=== PATIENT | male | born 1995 | race Caucasian/White ===

== ENCOUNTER 2019-02-23 01:10 | Emergency (ER) | payer OTHER ==
[2019-02-23] MEDS ORDERED: Lidocaine 2% EPI 1:200000 MPF* 10 ML VIAL INJ ONE (02:04)
[2019-02-23] MEDS ORDERED: Lidocaine 2% w/ EPI 1:200,000* 20 ML SDV VIAL ONE (02:06)
--- NOTE | 2019-02-23 02:11 | ED ---
Laceration/Wound HPI - HPI Summary HPI Summary: Patient is a 23 y/o M presenting to [facility] with multiple lacerations to fingers of the left hand. He states that around 0000 02/23/19, he tripped and smashed his left hand through a window pane. He denies foreign body sensation. Patient had washed out the lacerations at home. He denies PMHx of HTN and diabetes, PSHx , and FMHx of HTN and diabetes. On triage, pain is rated 3/10, nothing is noted to aggravate/alleviate Sx. Home medications and allergies are reviewed. - History of Current Complaint Stated Complaint: HAND LAC PER PT Time Seen by Provider: 02/23/19 02:00 Hx Obtained From: Patient Mechanism of Injury: Sharp/Blunt Trauma Onset/Duration: Still Present Aggravating: Nothing Alleviating: Nothing Current Severity: Mild Pain Intensity: 3 Pain Scale Used: 0-10 Numeric Associated Signs & Symptoms: Negative - Allergy/Home Medications Allergies/Adverse Reactions: Allergies Allergy/AdvReac Type Severity Reaction Status Date / Time No Known Allergies Allergy Verified 02/23/19 01:14 PMH/Surg Hx/FS Hx/Imm Hx Endocrine/Hematology History: Denies: Hx Diabetes Cardiovascular History: Denies: Hx Hypertension - Surgical History Surgery Procedure, Year, and Place: none Infectious Disease History: No Infectious Disease History: Denies: Traveled Outside the [place] in Last 30 Days - Family History Known Family History: Negative: Hypertension, Diabetes - Social History Alcohol Use: Weekly Substance Use Type: Reports: None Smoking Status (MU): Never Smoked Tobacco Review of Systems Negative: Fever - on vitals, temp is 98.4 F Skin: Other - positive - left hand lacerations All Other Systems Reviewed And Are Negative: Yes Physical Exam - Summary Physical Exam Summary: Appearance: Well-appearing, Well-nourished, lying in bed comfortably Skin: Patient had superficial lacerations to the left thumb and left, fifth finger. He additionally had a deeper laceration to his left, fourth finger. Lacerations are at the dorsal aspect of the hand. Eyes: sclera anicteric, no conjunctival pallor ENT: mucous membranes moist, pharynx appears normal Neck: Supple, nontender Respiratory: Clear to auscultation, no signs of respiratory distress Cardiovascular: Normal S1, S2. No murmurs. Normal distal pulses in tibial and radial bilaterally. Abdomen: Soft, nontender, normal active bowel sounds present Musculoskeletal: Normal, Strength/ROM Intact Neurological: A&Ox3, awake and alert, mentation is normal, speech is fluent and appropriate Psychiatric: affect is normal, does not appear anxious or depressed Triage Information Reviewed: Yes Vital Signs On Initial Exam: Initial Vitals Temp Pulse Resp BP Pulse Ox 98.4 F 77 15 119/57 99 02/23/19 01:12 02/23/19 01:12 02/23/19 01:12 02/23/19 01:12 02/23/19 01:12 Vital Signs Reviewed: Yes Procedures - Procedure Summary Procedure Summary: Lacerations were cleaned with warm soap water. Linear laceration of the fourth finger of the left hand was repaired. Digital block, 2% lidocaine with epi was used. Laceration was closed in single layer using 3, 5-0 Nylon sutures. Lacerations to the left thumb and left fifth finger were closed using skin adhesive. - Sedation Patient Received Moderate/Deep Sedation with Procedure: No - Laceration/Wound Repair 1 Location: Other - 4th finger of left hand Description: Linear Anesthesia: Digital, 2.0%, Lido, Epi Laceration/Wound Explored: clean Closure: Single Layer Suture Type: Nylon - 3 5-0 Nylon sutures Layer Closure?: Yes Sterile Dressing Applied?: Yes 2 Location: Other - left fifth finger Description: Linear Closure: Skin Adhesive 3 Location: Other - left thumb Description: Linear Closure: Skin Adhesive Diagnostics - Vital Signs Vital Signs Temp Pulse Resp BP Pulse Ox 02/23/19 01:12 98.4 F 77 15 119/57 99 - Laboratory Lab Statement: Any lab studies that have been ordered have been reviewed, and results considered in the medical decision making process. Laceration Repair Course/Dx - Course Course Of Treatment: Patient is a 23 y/o M presenting to [facility] with multiple lacerations to fingers of the left hand. He states that around 0000 02/23/19, he tripped and smashed his left hand through a window pane. He denies foreign body sensation. Patient had washed out the lacerations at home. Patient had superficial lacerations to the left thumb and left, fifth finger. He additionally had a deeper laceration to his left, fourth finger. Lacerations are at the dorsal aspect of the hand. Lacerations were cleaned with warm soap water. Linear laceration of the fourth finger of the left hand was repaired. Digital block, 2% lidocaine with epi was used. Laceration was closed in single layer using 3, 5-0 Nylon sutures. Lacerations to the left thumb and left fifth finger were closed using skin adhesive. Patient was discharged to home. - Clinical Impression Provider Diagnoses: Laceration of multiple sites of left hand and fingers Discharge ED - Sign-Out/Discharge Documenting (check all that apply): Patient Departure - discharge - Discharge Plan Condition: Stable Disposition: HOME Patient Education Materials: Care For Your Stitches (ED), Laceration (ED) Referrals: [facility] [Outside] Additional Instructions: The sutures need to be removed in 7 days - Billing Disposition and Condition Condition: STABLE Disposition: Home - Attestation Statements Document Initiated by Seblee: Yes Documenting Scribe: QUINCY MCLAUGHLIN Provider For Whom Seblee is Documenting (Include Credential): GENNA FIGUEROA MD Scribe Attestation: QUINCY Churchill, scribed for GENNA FIGUEROA MD on 02/24/19 at 0329. Scribe Documentation Reviewed: Yes Provider Attestation: The documentation as recorded by the QUINCY suazo accurately reflects the service I personally performed and the decisions made by , GENNA FIGUEROA MD Status of Scribe Document: Viewed
[2019-02-23] MEDS ORDERED: Lidocaine 2% w/ EPI 1:200,000* 20 ML SDV VIAL INJ ONE (02:33)
[2019-02-23 02:53] VITALS: BP 111/63
== END 2019-02-23 02:52 | disposition home or self-care (01) ==
LOC: ED 01:10
DX: S61.215A Laceration without foreign body of left ring finger without damage to nail, initial encounter (principal); S61.012A Laceration without foreign body of left thumb without damage to nail, initial encounter; S61.217A Laceration without foreign body of left little finger without damage to nail, initial encounter; W01.198A Fall on same level from slipping, tripping and stumbling with subsequent striking against other object, initial encounter; Y92.9 Unspecified place or not applicable
CPT/HCPCS: 12001; 99282

== ENCOUNTER 2019-03-29 12:48 | Emergency (ER) | payer OTHER ==
[2019-03-29 14:21] VITALS: BP 131/77
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
== END 2019-03-29 14:15 | disposition home or self-care (01) ==
LOC: ED 12:48
DX: S06.0X1A Concussion with loss of consciousness of 30 minutes or less, initial encounter (principal); S01.01XA Laceration without foreign body of scalp, initial encounter; W03.XXXA Other fall on same level due to collision with another person, initial encounter; Y93.83 Activity, rough housing and horseplay; Y92.9 Unspecified place or not applicable
CPT/HCPCS: 12001; 99283